=== PATIENT | female | born 1950 | race Caucasian/White ===

== ENCOUNTER 2016-09-28 00:16 | Emergency (ER) | payer MEDICARE ==
[~2016-09-28] VITALS: Ht 162.6 cm; Wt 89.5 kg
[~2016-09-28 00:16] MED LIST: BIOT300T2 PO; CHOL5000 PO; DHA PO; GLUC1500 PO; HYDR-4003 PO; LISI1TAB7 PO; OMEP20CA11 PO; ONDA8TAB10 PO; OXYC-407 PO; OXYC1TAB24 PO; [UNRECOGNIZED DRUG - OTHER] PO; [UNRECOGNIZED DRUG - OTHER] PO; fiber PO
[2016-09-28 00:18] VITALS: BP 145/79; PULSE 75; RESP 18; O2SAT 98
--- NOTE | 2016-09-28 00:33 | ED.REPORT ---
HPI-Abd Pain F 40 and Over Date of Service Sep 28, 2016 ED Provider: Dr. Rajiv Mijares M.D. A 66 year old female with a medical history including hypertension, GERD, diverticulitis, and IBS s/p several abdominal surgeries presents to the ED with worsening diarrhea onset four days ago. Associated symptoms include intermittent lower abdominal pain, nausea, and dry heaving. Her symptoms are dissimilar from previous diverticulitis flares. The patient denies hematochezia or fever. Nursing Notes Stated Complaint: STOMACH ISSUES Chief Complaint: Female Abdominal Pain Nursing Notes Reviewed: Yes Allergies: Coded Allergies: Sulfa (Sulfonamide Antibiotics) (Verified Allergy, Intermediate, rash, ) Scheduled ([fiber]) 1 TABLET PO BID ([Folic Acidw/ DHA]) 1 TABLET PO DAILY ([tropism Chloride]) 20 MG PO BID Lisinopril / HCTZ 10-12.5 mg (Lisinopril / HCTZ 10-12.5 mg) 1 Each Tablet 1 EACH PO DAILY Omeprazole (Omeprazole) 20 Mg Capsule.dr 20 MG PO DAILY Ondansetron ODT (Ondansetron ODT) 8 Mg Tab.rapdis 8 MG PO QID Scheduled PRN Hydrocodone-Acetaminophen 5-325 mg (Hydrocodone-Acetaminophen 5-325 mg) 1 Each Tablet 1-2 TABLET PO Q6H PRN PRN For Pain Ondansetron ODT (Ondansetron ODT) 8 Mg Tab.rapdis 8 MG PO qh4 PRN PRN For Nausea Oxycodone HCl/Acetaminophen 5-325 (Endocet 5-325) 1 Each Tablet 1-2 TABLET PO Q4H PRN PRN For Pain oxyCODONE-Acetaminophen 5-325 mg (oxyCODONE-Acetaminophen 5-325 mg) 1 Each Tablet 1-2 TAB PO TID PRN PRN For Pain Miscellaneous Medications Biotin (Biotin) 300 Mcg Tablet 500 MCG PO Cholecalciferol (Vitamin D3) (Vitamin D3) 5,000 Unit Capsule 5,000 UNIT PO Glucosamine HCl (Glucosamine HCl) 1,500 Mg Tablet 1,500 MG PO General Time Seen by MD: 00:33 Chief Complaint Diarrhea moderate Hx Obtained From: Patient Arrived By: Walk-in Sudden in Onset?: Yes Onset Occurred: 4 days ago Symptom Duration: Since onset Progression since Onset: Gradually worsening Location: : Abdomen lower Quality: Painful Severity: Current: Moderate Severity: Maximum: Moderate Associated with: Reports: Nausea, Vomiting, Denies: Fever, Hematochezia Pertinent Negative: Relieved by nothing Context Related History: Reports: Abdominal surgery, Diverticulosis, GERD, Inflam bowel disease Recent Healthcare: No recent doctor visit Similar Sx Previous: No Past Medical History Past Medical History Diverticulitis dx 06/21/15, admit 09/19/13 and 05/21 H/o kidney stones IBS History of overactive bladder Reports: GERD, Hypertension Past Surgical History Ventral Hernia repair Umbilical hernia repair Lap band surgery 2005 Cholecystectomy Tonsillectomy Hysterectomy Family History Reviewed, not relevant Smoking History Never Smoker Social History Alcohol Use: Denies alcohol use Drug Use: Denies drug use Other Social History: Good social support, , Local resident Ambulatory Status Independent Review of Systems Constitutional: Denies: Fever Respiratory: Denies: Non-productive cough, Shortness of breath GI: Reports: Abdominal pain (Intermittent, lower), Diarrhea, Nausea, Vomiting ( Dry-heaving), Denies: Hematochezia Complete sys rev & neg: except as marked. Physical Exam Vital Signs Vital Signs (First) Date Time Temp Pulse Resp B/P Pulse Ox O2 Delivery O2 Flow Rate FiO2 09/28/16 00:18 37.4 75 18 145/79 98 Room Air Initial VS: Reviewed Head / Eyes: Atraumatic, Normocephalic ENT: Conjunctiva normal, No scleral icterus Neck: Supple, Full range of motion Skin: Warm, Dry Neurologic: Alert, Oriented, Nonfocal Psychiatric: Mood/affect normal, Behavior normal, Normal thought content General/Constitutional: Awake, Alert Respiratory / Chest: Breath sounds NL, Breath sounds = bilat, No respiratory distress Cardiovascular: Heart rate NL, Regular rhythm, Heart sounds NL Abdomen: Soft Tenderness/Guarding/Rebound: Positive: Tender LLQ... (Mild), Tender LUQ... ( Mild) Interpretation & Diagnostics Lab Results Interpretation Result Diagram: 09/28/160 09/28/16 005 Test 09/28/16 00:50 09/28/16 04:00 White Blood Count 6.9th/mm3 (3.8-10.1) Red Blood Count 5.53mil/mm3 (3.90-5.20) Hemoglobin 15.6g/dL (12.0-15.6) Hematocrit 48.0% (35.0-46.0) Mean Corpuscular Volume 86.8fL (81-100) Mean Corpuscular Hemoglobin 28.2pg (27.0-35.0) Mean Corpuscular Hemoglobin Concent 32.5% (32.0-37.0) Red Cell Distribution Width 13.5% (12.3-15.4) Platelet Count 306bil/L (150-400) Neutrophils (%) (Auto) 77.4% (40-74) Lymphocytes (%) (Auto) 14.4% (14-46) Monocytes (%) (Auto) 6.0% (4-12) Eosinophils (%) (Auto) 1.6% (0-5) Basophils (%) (Auto) 0.3% (0-3) Hold Purple Top Tube Received (Received) Prothrombin Time 11.3sec (8.1-12.5) Prothromb Time International Ratio 1.05ratio Hold Blue Top Tube Received (Received) Sodium Level 136mEq/L (134-144) Potassium Level 3.5mEq/L (3.5-5.2) Chloride Level 97mEq/L (97-108) Carbon Dioxide Level 24mmol/L (18-29) Blood Urea Nitrogen 12mg/dL (8-27) Creatinine 0.63mg/dL (0.57-1.00) Estimat Glomerular Filtration Rate 135mL/min (>59) Glucose Level 94mg/dL (60-99) Calcium Level 9.7mg/dL (8.5-10.1) Magnesium Level 1.8mg/dL (1.6-2.6) Total Bilirubin 1.5mg/dL (0.0-1.2) Aspartate Amino Transf (AST/SGOT) 144U/L (0-50) Alanine Aminotransferase (ALT/SGPT) 246U/L (0-32) Alkaline Phosphatase 145U/L (25-165) Total Protein 7.6g/dL (6.4-8.4) Albumin 4.6g/dL (3.4-5.0) Lipase 20U/L (13-60) Hold Red Top Tube Received (Received) Hold Mcintosh Top Tube Received (Received) X-Ray Abdominal Interpretation ACUTE ABDOMINAL SERIES: Air-fluid levels Bowel obstruction vs ileus Interpretation / Wet Read by: Wet read ED physician CT Abd / Pelvis Interpretation CONCLUSION: Bilateral hydronephrosis without obvious obstructing cause identified in either kidney or ureter. Postoperative change of the bowel noted. Diverticulosis without diverticulitis. Transmitted to the ED at 09/28/2016 - 3:28:34 AM PST Study type: Abdominal CT IV contrast Interpretation / Wet Read by: Interpret - Radiologist Re-Eval/Medical Decision Med Decision/Clinical Course 66-year-old with somewhat complex history including a gastric sleeve, prior cholecystectomy, prior hysterectomy but no fracture me, presents with nausea vomiting and diarrhea. She appears to have a normal virus type infection clinically. Her only lab findings of no were not elevated bilirubin and AST and ALT. Hepatitis studies are pending. CT of the abdomen does not show any significant abnormalities. She was discharged home with nausea control by mouth fluid replacement and progressive diet. Follow-up with PCP. Prompt return if worse. Source of Hx: Old records Re-Evaluation/Progress : Time of Eval: 04:46 Patient Status: Condition improved Re-Evaluation/Progress Note: Patient feels better. Discussed with patient lab, x-ray, and CT results, diagnosis, and plan for discharge. Follow-up and return to the ER instructions given. Patient agrees with plan for care and all questions were addressed. Counseled Regarding: Diagnosis, Lab results, Need for follow-up, When/why to return to ED Discharge & Departure Shift Change Sign-Out Response to Therapy: Improved Primary Impression: Diarrhea Additional Impressions: Acute gastroenteritis Vomiting Vomiting type: unspecified Vomiting Intractability: non-intractable Nausea presence: with nausea Qualified Code: R11.2 - Nausea with vomiting, unspecified Disposition: Home Discharge Condition All VS Reviewed: Yes Condition: Improved Patient Instructions: Acute Diarrhea (ED), Acute Nausea and Vomiting (ED), Gastroenteritis (ED) Additional Instructions: Zofran four times daily if needed for nausea. We do not recommend antidiarrheals, as they merely prolong contact of the colon with potentially toxic material. However, you must replace fluid losses volume for volume. Drink small frequent doses of electrolyte replacement fluid, such as Pedialyte or Gatorade or Powerade. Follow-up with your doctor in the office. Return if worsening, if you develop high fever, or if you begin to have blood in your stool. Follow-up also with your doctor in the office. This is probably norovirus, and is quite contagious. Pay very careful attention to hand washing when in contact with other family members. Referrals: Ariel Rodney MD (PCP) Scribe Attestation Portions of this note were transcribed by Diana Beck. I, Dr. Mijares, personally performed the history, physical exam, and medical decision-making; I reviewed and confirmed the accuracy of the information in the transcribed note. Signed by: Bea Knight, 09/28/2016, 05:10 copies to: Ariel Rodney MD, Christopher W MD Sep 28, 2016 00:33 DIANA BECK Sep 28, 2016 01:07
[2016-09-28] MEDS ORDERED: 0.9% Sodium Chloride 1,000 ML IV ONE ×2 (01:03→01:05)
[2016-09-28] MEDS ORDERED: Ondansetron 2 mg/mL 2 mL Inj IVPUSH ONE (01:05)
[2016-09-28] MEDS ORDERED: Pantoprazole 4 mg/mL 10 mL Inj IVPUSH ONE (01:05)
[2016-09-28 01:20] LABS: BASOPHILS % (AUTO) 0.3 % (0-3); EOSINOPHILS % (AUTO) 1.6 % (0-5); Mean Corpuscular Hemoglobin 28.2 pg (27.0-35.0); Mean Corpuscular Volume 86.8 fL (81-100); NEUTROPHILS % (AUTO) 77.4 % (40-74); Platelet Count 306 bil/L (150-400)
[2016-09-28 01:26] LABS: INR 1.05 ratio
[2016-09-28 01:31] LABS: Magnesium 1.8 mg/dL (1.6-2.6)
[2016-09-28] MEDS: HYDROmorphone 1 mg/mL Inj IVPUSH PRN ×2 (03:28→04:40)
[2016-09-28] MEDS ORDERED: ONDA8TAB10 PO (04:53)
[2016-09-28] MEDS ORDERED: Ondansetron 8 mg ODT Tablet PO ONE (05:00)
[2016-09-28 05:11] VITALS: BP 122/76; PULSE 88; RESP 18; O2SAT 98
--- NOTE | 2016-09-28 08:41 | DRSVH ---
PROCEDURE: CT ABDOMEN AND PELVIS WITH CONTRAST ([id number]) INDICATIONS: 66 year-old woman with left lower quadrant abdominal pain, elevated bilirubin and trans aminase. TECHNIQUE: After the administration of intravenous contrast, 5 mm thick sections acquired from the diaphragm to the symphysis. 5 mm coronal and sagittal reformats were acquired. For radiation dose reduction, the following was used: automated exposure control, adjustment of mA and/or kV according to patient siz e. COMPARISON: [facility], CT, ABD/PELVIS W/CON (PNL), 05/20/2013, 21:56. [facility], CT, ABD/PELVIS W/CON (PNL), 09/19/2013, 21:37. [facility], CT, CT ABD PELVIS W CO N, 06/20/2015, 16:32. [facility], CT, CT ABD PELVIS W CON, 05/29/2016, 19:05. FINDINGS: Image quality: Excellent. ABDOMEN: Lung bases: Lung bases are clear. Heart size is normal. Solid organs: Liver and spleen are normal in size and enhancement. Gallbladder is surgically absent . Biliary system is non dilated. Pancreas enhances normally. No adrenal nodules. Kidneys demonstr ate normal size and enhancement. Bilateral mild pelviectasis, unchanged from 05/29/2016. No renal ca lculi. Small renal cysts are present bilaterally. Peritoneum and bowel: There is gastric banding. Bowel loops demonstrate normal wall thickness and ca liber. There is numerous colonic diverticula. No evidence for active diverticulitis. Normal appendix . No free fluid or air. Nodes and vessels: No retroperitoneal or mesenteric adenopathy by size criteria. Aorta and inferior vena cava are normal in size. Miscellaneous: No ventral hernias. PELVIS: Genitourinary: Bladder wall thickness is normal. Miscellaneous: No inguinal hernias or adenopathy. Bones: No suspicious bony lesions. No vertebral body compression fractures. Degenerative changes roverto mbar spine. IMPRESSION: 1. Chronic mild bilateral renal pelviectasis. There is no hydroureter. No obstructive stones identifi ed. 2. Diverticulosis. No active diverticulitis. 3. Normal appendix. 4. Cholecystectomy. No significant discrepancy with the cook night radiology preliminary report. Dictated by: Gabino Buchanan M.D. on 09/28/2016 at 8:28 Approved by: Gabino Buchanan M.D. on 09/28/2016 at 8:39
--- NOTE | 2016-09-28 10:07 | DRSVH ---
PROCEDURE: X-RAY ACUTE ABDOMINAL SERIES ([id number]) INDICATIONS: abdo pain vomiting, post lap band TECHNIQUE: One view chest and two views of the abdomen were acquired. COMPARISON: [facility], CR, XR ABD ACUTE SERIES 3VW, 06/20/2015, 15:34. FINDINGS: Surgical changes and devices: Gastric lap band present. Chest: Lungs are clear. Heart size is normal. No pleural effusions. No pneumoperitoneum. Abdomen: Bowel gas pattern is nonspecific. There are multiple short air-fluid levels seen throughout the bowel in the abdomen and pelvis, otherwise the bowel gas pattern is normal. No pneumatosis or b owel wall thickening. No pneumoperitoneum. Bones: No suspicious bony lesions. IMPRESSION: 1. Nonspecific bowel gas pattern. If patient's symptoms persist, recommend repeat imaging or CT. Dictated by: Tutu Manuel [facility] Interpreted: Mariposa Negro MD on 09/28/2016 at 10:05 Transcribed by: MARILEE on 09/28/2016 at 10:06 Approved by: Mariposa Negro M.D. on 09/28/2016 at 16:28
[2016-09-29 01:07] LABS: Hepatitis A Antibody IgM Negative (Negative); Hepatitis B Core Antibody IgM Negative (Negative)
== END 2016-09-28 05:13 | disposition home or self-care (01) ==
LOC: SED 00:16
DX: K52.9 Noninfective gastroenteritis and colitis, unspecified (principal); K21.9 Gastro-esophageal reflux disease without esophagitis; I10 Essential (primary) hypertension; Z90.49 Acquired absence of other specified parts of digestive tract; Z90.710 Acquired absence of both cervix and uterus; Z88.2 Allergy status to sulfonamides
CPT/HCPCS: 36415; 74022; 74177; 80053; 83690; 83735; 85025; 85610; 86705; 86709; 87340; 87341; 96361; 96374; 96375; 96376; 99285; G0472; J1170; J2405; J7030; Q9967

== ENCOUNTER 2017-02-22 16:28 | Emergency (ER) | payer MEDICARE ==
[~2017-02-22] VITALS: Ht 160 cm; Wt 93.2 kg
[2017-02-22 16:30] VITALS: BP 137/67; PULSE 69; RESP 20; O2SAT 100
[2017-02-22 17:32] LABS: BASOPHILS % (AUTO) 0.4 % (0-3); EOSINOPHILS % (AUTO) 1.7 % (0-5); MONOCYTES % (AUTO) 5.9 % (4-12); Mean Corpuscular Hemoglobin 28.9 pg (27.0-35.0); Mean Corpuscular Volume 88.7 fL (81-100); NEUTROPHILS % (AUTO) 65.7 % (40-74); Platelet Count 333 bil/L (150-400)
[2017-02-22 17:52] LABS: Magnesium 1.9 mg/dL (1.6-2.6)
[2017-02-22] MEDS ORDERED: PROP60CA2 PO (20:00)
[2017-02-22] MEDS ORDERED: SERT50TA9 PO (20:00)
[2017-02-22] MEDS ORDERED: CYCL10TA9 PO (20:00)
[2017-02-22] MEDS ORDERED: SULI200T79 PO (20:00)
[2017-02-22 20:36] VITALS: BP 118/74; PULSE 63; RESP 18; O2SAT 97
[2017-02-22 20:57] LABS: APPEARANCE,URINE CLEAR (CLEAR,HAZY); COLOR,URINE YELLOW (YELLOW); OCCULT BLOOD,URINE TRACE (NEGATIVE); UROBILINOGEN,URINE NORMAL (NORMAL)
--- NOTE | 2017-02-22 21:28 | ED.REPORT ---
HPI-Abd Pain F 40 and Over Date of Service Feb 22, 2017 ED Provider: Pro Vogt MD Pt is a 66 year old female with a hx of diverticulitis, IBS, and HTN presenting to the ED complaining of diarrhea and left abdominal pain onset a week and a half ago, now radiating across the lower abdomen. Associated symptoms include nausea and constipation. Denies fever, chills, or any other symptoms at this time. She reports that she is usually able to take Imodium to resolve her symptoms, but that this time Imodium did not help. Nursing Notes Stated Complaint: PAIN IN LOWER STOMACH Chief Complaint: Female Abdominal Pain Nursing Notes Reviewed: Yes Allergies: Coded Allergies: Sulfa (Sulfonamide Antibiotics) (Verified Allergy, Intermediate, rash, ) Scheduled ([fiber]) 1 TABLET PO BID ([Folic Acidw/ DHA]) 1 TABLET PO DAILY Cholecalciferol (Vitamin D3) (Vitamin D3) 5,000 Unit Capsule 5,000 UNIT PO DAILY Glucosamine HCl (Glucosamine HCl) 1,500 Mg Tablet 1,500 MG PO DAILY Lisinopril / HCTZ 10-12.5 mg (Lisinopril / HCTZ 10-12.5 mg) 1 Each Tablet 1 EACH PO DAILY Omeprazole (Omeprazole) 20 Mg Capsule.dr 20 MG PO DAILY Propranolol ER (Propranolol ER) 60 Mg Cap.sa.24h 60 MG PO DAILY Sertraline HCl (Sertraline) 50 Mg Tablet 50 MG PO DAILY Sulindac (Sulindac) 200 Mg Tablet 200 MG PO DAILY Scheduled PRN Cyclobenzaprine (Cyclobenzaprine) 10 Mg Tablet 10 MG PO DAILY PRN PRN SPASMS Miscellaneous Medications Biotin (Biotin) 300 Mcg Tablet 500 MCG PO General Time Seen by MD: 21:20 Chief Complaint Abdominal pain, Diarrhea moderate Hx Obtained From: Patient Arrived By: Walk-in Sudden in Onset?: No Onset Occurred: 1 week ago (A week and a half) Symptom Duration: Since onset Location: : Abdomen lower Quality: Painful Severity: Current: Mild Severity: Maximum: Moderate Associated with: Reports: Constipation, Diarrhea, Nausea, Denies: Fever Recent Healthcare: No recent doctor visit, No recent hospitalization Similar Sx Previous: Yes Past Medical History Past Medical History Diverticulitis dx 06/21/15, admit 09/19/13 and 05/21 H/o kidney stones IBS History of overactive bladder Reports: GERD, Hypertension Past Surgical History Ventral Hernia repair Umbilical hernia repair Lap band surgery 2005 Cholecystectomy Tonsillectomy Hysterectomy Family History Reviewed, not relevant Smoking History Never Smoker Social History Alcohol Use: Denies alcohol use Drug Use: Denies drug use Other Social History: Good social support, , Local resident Ambulatory Status Independent Review of Systems Constitutional: Denies: Chills, Fever GI: Reports: Abdominal pain, Constipation, Diarrhea, Nausea Complete sys rev & neg: except as marked. Physical Exam Vital Signs Vital Signs (First) Date Time Temp Pulse Resp B/P Pulse Ox O2 Delivery O2 Flow Rate FiO2 02/22/17 16:30 37.1 69 20 137/67 100 Room Air Initial VS: Reviewed, Vital signs normal Head / Eyes: Atraumatic, Normocephalic, PERRL ENT: Mucous membranes moist, Conjunctiva normal, No scleral icterus Extremities: Vascular intact, Neuro intact, No swelling, No tenderness Skin: Warm, Dry, No cyanosis Neurologic: Alert, Oriented, Nonfocal Psychiatric: Mood/affect normal, Behavior normal, Normal thought content General/Constitutional: Awake, Alert, No acute distress, Well appearing, Well developed, Well hydrated Respiratory / Chest: Breath sounds NL, Breath sounds = bilat, No respiratory distress, No rales, No rhonchi, No wheezing, No stridor Cardiovascular: Heart rate NL, Regular rhythm, Heart sounds NL, Peripheral circulation NL Abdomen: Atraumatic, Soft, No guarding, No rebound Tenderness/Guarding/Rebound: Positive: Tender LLQ... (Mild) Interpretation & Diagnostics Lab Results Interpretation Result Diagram: 02/22/17 1722 02/22/17 1722 Test 02/22/17 17:22 02/22/17 20:19 02/22/17 20:40 White Blood Count 8.2th/mm3 (3.8-10.1) Red Blood Count 4.71mil/mm3 (3.90-5.20) Hemoglobin 13.6g/dL (12.0-15.6) Hematocrit 41.8% (35.0-46.0) Mean Corpuscular Volume 88.7fL (81-100) Mean Corpuscular Hemoglobin 28.9pg (27.0-35.0) Mean Corpuscular Hemoglobin Concent 32.5% (32.0-37.0) Red Cell Distribution Width 13.5% (12.3-15.4) Platelet Count 333bil/L (150-400) Neutrophils (%) (Auto) 65.7% (40-74) Lymphocytes (%) (Auto) 26.1% (14-46) Monocytes (%) (Auto) 5.9% (4-12) Eosinophils (%) (Auto) 1.7% (0-5) Basophils (%) (Auto) 0.4% (0-3) Sodium Level 140mEq/L (134-144) Potassium Level 4.6mEq/L (3.5-5.2) Chloride Level 103mEq/L (97-108) Carbon Dioxide Level 25mmol/L (18-29) Blood Urea Nitrogen 17mg/dL (8-27) Creatinine 0.75mg/dL (0.57-1.00) Estimat Glomerular Filtration Rate 110mL/min (>59) Glucose Level 95mg/dL (60-99) Calcium Level 9.8mg/dL (8.5-10.1) Magnesium Level 1.9mg/dL (1.6-2.6) Total Bilirubin 0.9mg/dL (0.0-1.2) Aspartate Amino Transf (AST/SGOT) 17U/L (0-50) Alanine Aminotransferase (ALT/SGPT) 19U/L (0-32) Alkaline Phosphatase 77U/L (25-165) Total Protein 7.0g/dL (6.4-8.4) Albumin 4.1g/dL (3.4-5.0) Lipase 25U/L (13-60) Hold Rios Top Tube Received (Received) Hold Urine Received (Received) Urine Color Yellow (YELLOW) Urine Appearance Clear (CLEAR,HAZY) Urine pH 5.0 (5.0-8.0) Urine Specific [place] 1.025 (1.003-1.035) Urine Protein Negativemg/dL (NEG,TRACE) Urine Glucose (UA) Negativemg/dL (NEGATIVE) Urine Ketones Negativemg/dL (NEGATIVE) Urine Occult Blood Trace (NEGATIVE) Urine Nitrite Negative (NEGATIVE) Urine Bilirubin Negative (NEGATIVE) Urine Urobilinogen Normalmg/dL (NORMAL) Urine Leukocyte Esterase Negative (NEGATIVE) Urine RBC 0-2/hpf (0-2) Urine WBC 0-5/hpf (0-5) Urine Epithelial Cells Few/hpf (NONE-MOD) Urine Crystals None seen (NONE SEEN) Urine Bacteria Few/hpf (NONE-FEW) Urine Hyaline Casts None/lpf (NONE) Urine Granular Casts None seen (NONE SEEN) Urine Waxy Casts None seen (NONE SEEN) Urine Red Blood Cell Casts None seen (NONE SEEN) Urine White Blood Cell Casts None seen (NONE SEEN) Urine Mucus Present (None Seen) Urine Trichomonas None seen (NONE SEEN) Urine Yeast None (NONE SEEN) Urinalysis Comment None Urine Culture Reflexed Not indicated Lab values outside NL range: no clinical significance. Re-Eval/Medical Decision Med Decision/Clinical Course Patient with a history of diverticulitis presents with similar symptoms. We discussed the value of CT scan in this situation. She would prefer to have him. Treatment and reevaluation. Re-Evaluation/Progress : Time of Eval: 21:42 Patient Status: Condition improved Re-Evaluation/Progress Note: Discussed plan for discharge. Pt understands and agrees. Counseled Regarding: Diagnosis, Lab results, Need for follow-up, When/why to return to ED Discharge & Departure Primary Impression: Acute diverticulitis Disposition: Home Discharge Condition All VS Reviewed: Yes Condition: Improved Patient Instructions: Diverticulitis (ED) Additional Instructions: As we discussed, this sounds like diverticulitis. We have not done the CT scan to prove that, but we will treat you empirically with antibiotics and nausea medicine. You can also take [id number] diarrhea medication like Imodium. If you do not improve in the next couple of days, he will need to be reevaluated and possibly get a CT scan at that time. Ondansetron 4-8 mg or 4 times daily as needed for nausea and vomiting, #4 prepack dispensed #20 prescription written. Amoxicillin clavulanate (Augmentin) 875, one pill twice daily for 10 days, #20 dispensed. Metronidazole (Flagyl) 500 mg by mouth 3 times a day for a week, #20 dispensed. Referrals: Ariel Rodney MD (PCP) Scribe Attestation Portions of this note were transcribed by Soo Maria. I, Dr. Vogt personally performed the history, physical exam and medical decision-making; I reviewed and confirmed the accuracy of the information in the transcribed note. Signed by: Bea Ferrara, 02/22/2017 at 2141. copies to: Ariel Rodney MD, Pro Rodgers MD Feb 22, 2017 21:28 SOO MARIA Feb 22, 2017 21:35
[2017-02-22] MEDS ORDERED: _Ondansetron ODT 4 mg Tablet PO PRN (21:35)
[2017-02-22] MEDS ORDERED: Ondansetron 8 mg ODT Tablet PO ONE (21:35)
[2017-02-22 22:01] VITALS: BP 129/74; PULSE 64; RESP 18; O2SAT 100
[2017-02-23] MEDS ORDERED: _Amoxicillin-Clavulanate 875-125 mg Tablet PO SCH (08:30)
[2017-02-23] MEDS ORDERED: _metroNIDAZOLE 500 mg Tablet PO SCH (08:30)
== END 2017-02-22 22:01 | disposition home or self-care (01) ==
LOC: SED 16:28
DX: K57.92 Diverticulitis of intestine, part unspecified, without perforation or abscess without bleeding (principal); I10 Essential (primary) hypertension; K21.9 Gastro-esophageal reflux disease without esophagitis; Z88.2 Allergy status to sulfonamides; Z87.442 Personal history of urinary calculi

== ENCOUNTER 2017-04-27 05:48 | Emergency (ER) | payer MEDICARE ==
[~2017-04-27] VITALS: Ht 160 cm; Wt 89.5 kg
[~2017-04-27 05:48] MED LIST changes: +CYCL10TA9 PO; -HYDR-4003 PO; -ONDA8TAB10 PO; -OXYC-407 PO; -OXYC1TAB24 PO; +PROP60CA2 PO; +SERT50TA9 PO; +SULI200T79 PO; -[UNRECOGNIZED DRUG - OTHER] PO
[2017-04-27 05:59] VITALS: BP 138/87; PULSE 86; RESP 18; O2SAT 98
[2017-04-27 06:52] LABS: BASOPHILS % (AUTO) 0.3 % (0-3); EOSINOPHILS % (AUTO) 0.9 % (0-5); MONOCYTES % (AUTO) 4.7 % (4-12); Mean Corpuscular Hemoglobin 29.3 pg (27.0-35.0); Mean Corpuscular Volume 87.4 fL (81-100); NEUTROPHILS % (AUTO) 81.2 % (40-74); Platelet Count 311 bil/L (150-400)
--- NOTE | 2017-04-27 06:58 | ED.REPORT ---
HPI-Abd Pain F 40 and Over Date of Service Apr 27, 2017 ED Provider: Shawn Mullins MD Patient is a 66 year old female with a hx of diverticulitis, GERD, and hiatal hernia who presents ot the ED complaining of diffuse lower abdominal pain that radiates to her back bilaterally onset yesterday. She describes the pain as aching and pressure, a 7/10 in severity at its worst but 3/10 currently, and worse with walking/movement. Associated symptom include dysuria, hematuria, urinary frequency, nausea, fever and lightheadedness. She denies urinary retention, constipation, diarrhea, vomiting, or any other symptoms. Pt has no known sick contacts. Nursing Notes Stated Complaint: POSS UTI Chief Complaint: Female Abdominal Pain Nursing Notes Reviewed: Yes Allergies: Coded Allergies: Sulfa (Sulfonamide Antibiotics) (Verified Allergy, Intermediate, rash, ) Scheduled ([fiber]) 1 TABLET PO BID ([Folic Acidw/ DHA]) 1 TABLET PO DAILY Cholecalciferol (Vitamin D3) (Vitamin D3) 5,000 Unit Capsule 5,000 UNIT PO DAILY Ciprofloxacin (Cipro) 500 Mg Tablet 500 MG PO BID Glucosamine HCl (Glucosamine HCl) 1,500 Mg Tablet 1,500 MG PO DAILY Lisinopril / HCTZ 10-12.5 mg (Lisinopril / HCTZ 10-12.5 mg) 1 Each Tablet 1 EACH PO DAILY Metronidazole (Flagyl) 500 Mg Tablet 500 MG PO Q8H Omeprazole (Omeprazole) 20 Mg Capsule.dr 20 MG PO DAILY Propranolol ER (Propranolol ER) 60 Mg Cap.sa.24h 60 MG PO DAILY Sertraline HCl (Sertraline) 50 Mg Tablet 50 MG PO DAILY Sulindac (Sulindac) 200 Mg Tablet 200 MG PO DAILY Scheduled PRN Cyclobenzaprine (Cyclobenzaprine) 10 Mg Tablet 10 MG PO DAILY PRN PRN SPASMS Miscellaneous Medications Biotin (Biotin) 300 Mcg Tablet 500 MCG PO General Time Seen by MD: 06:05 Chief Complaint Abdominal pain Hx Obtained From: Patient Arrived By: Walk-in Sudden in Onset?: Yes Onset Occurred: Yesterday Symptom Duration: Since onset Location: : Abdomen lower: Diffuse Quality: Aching, Pressure Radiation: : Back Severity: Current: Pain level 3 out of 10 Severity: Maximum: Pain level 7 out of 10 Associated with: Reports: Dysuria, Fever, Hematuria, Nausea, Urinary frequency Additional Notes: lightheadedness Pertinent Negative: Pt denies other symptoms Exacerbated by: Movement, Walking Pertinent Negative: Relieved by nothing Context Related History: Reports: Abdominal surgery ([facility]herrie ), Bariatric surgery Recent Healthcare: Recent doctor visit Risk Factors )( AAA Risk Stratification HypertensionNo Smoking Risk factors reviewed Past Medical History Past Medical History Diverticulitis dx 06/21/15, admit 09/19/13 and 05/21 H/o kidney stones IBS History of overactive bladder TMJ disease hiatal hernia Reports: GERD, Hypertension Past Surgical History Ventral Hernia repair Umbilical hernia repair Lap band surgery 2005 Cholecystectomy Tonsillectomy Hysterectomy Vaginal sling Family History Reviewed, not relevant Smoking History Never Smoker Social History Alcohol Use: "Social" Drug Use: Denies drug use Other Social History: Good social support, , Local resident Ambulatory Status Independent Review of Systems Constitutional: Reports: Fever GI: Reports: Abdominal pain, Nausea, Denies: Constipation, Diarrhea, Vomiting Female: Reports: Dysuria, Hematuria, Urinary frequency, Denies: Urination decreased Musculoskeletal: Reports: Back pain Complete sys rev & neg: except as marked. Neurologic: Reports: Lightheaded Physical Exam Vital Signs Vital Signs (First) Date Time Temp Pulse Resp B/P Pulse Ox O2 Delivery O2 Flow Rate FiO2 04/27/17 05:59 38.0 86 18 138/87 98 Room Air Initial VS: Reviewed, Vital signs abnormal Head / Eyes: Atraumatic, Normocephalic Neck: Full range of motion Skin: Warm, Dry Neurologic: Alert, Oriented, Nonfocal Psychiatric: Mood/affect normal, Behavior normal, Normal thought content General/Constitutional: Awake, Alert, No acute distress Respiratory / Chest: Atraumatic, Breath sounds NL, Breath sounds = bilat, No respiratory distress Cardiovascular: Heart rate NL, Regular rhythm, Heart sounds NL Abdomen: Atraumatic, Soft, BS normoactive Tenderin the LLQ with guarding No referred tenderness Back: Atraumatic Mild CVA tenderness L>R Interpretation & Diagnostics Lab Results Interpretation Result Diagram: 04/27/17 0625 04/27/17 0625 Test 04/27/17 06:25 04/27/17 06:48 White Blood Count 11.7th/mm3 (3.8-10.1) Red Blood Count 4.78mil/mm3 (3.90-5.20) Hemoglobin 14.0g/dL (12.0-15.6) Hematocrit 41.8% (35.0-46.0) Mean Corpuscular Volume 87.4fL (81-100) Mean Corpuscular Hemoglobin 29.3pg (27.0-35.0) Mean Corpuscular Hemoglobin Concent 33.5% (32.0-37.0) Red Cell Distribution Width 13.2% (12.3-15.4) Platelet Count 311bil/L (150-400) Neutrophils (%) (Auto) 81.2% (40-74) Lymphocytes (%) (Auto) 12.7% (14-46) Monocytes (%) (Auto) 4.7% (4-12) Eosinophils (%) (Auto) 0.9% (0-5) Basophils (%) (Auto) 0.3% (0-3) Sodium Level 140mEq/L (134-144) Potassium Level 3.7mEq/L (3.5-5.2) Chloride Level 102mEq/L (97-108) Carbon Dioxide Level 21mmol/L (18-29) Blood Urea Nitrogen 18mg/dL (8-27) Creatinine 0.87mg/dL (0.57-1.00) Estimat Glomerular Filtration Rate 93mL/min (>59) Glucose Level 142mg/dL (60-99) Calcium Level 9.6mg/dL (8.5-10.1) Magnesium Level 1.8mg/dL (1.6-2.6) Total Bilirubin 0.8mg/dL (0.0-1.2) Aspartate Amino Transf (AST/SGOT) 21U/L (0-50) Alanine Aminotransferase (ALT/SGPT) 23U/L (0-32) Alkaline Phosphatase 84U/L (25-165) Total Protein 7.2g/dL (6.4-8.4) Albumin 4.3g/dL (3.4-5.0) Lipase 24U/L (13-60) Urine Color Bloody (YELLOW) Urine Appearance Turbid (CLEAR,HAZY) Urine pH 6.0 (5.0-8.0) Urine Specific [place] 1.025 (1.003-1.035) Urine Protein 300mg/dL (NEG,TRACE) Urine Glucose (UA) Negativemg/dL (NEGATIVE) Urine Ketones Negativemg/dL (NEGATIVE) Urine Occult Blood Large (NEGATIVE) Urine Nitrite Negative (NEGATIVE) Urine Bilirubin Negative (NEGATIVE) Urine Urobilinogen Normalmg/dL (NORMAL) Urine Leukocyte Esterase Small (NEGATIVE) Urine RBC Packed/hpf (0-2) Urine WBC 6-10/hpf (0-5) Urine Epithelial Cells Occasional/hpf (NONE-MOD) Urine Crystals None seen (NONE SEEN) Urine Bacteria Few/hpf (NONE-FEW) Urine Hyaline Casts None/lpf (NONE) Urine Granular Casts None seen (NONE SEEN) Urine Waxy Casts None seen (NONE SEEN) Urine Red Blood Cell Casts None seen (NONE SEEN) Urine White Blood Cell Casts None seen (NONE SEEN) Urine Mucus None seen (None Seen) Urine Trichomonas None seen (NONE SEEN) Urine Yeast None (NONE SEEN) Urinalysis Comment None Urine Culture Reflexed Indicated CT Abd / Pelvis Interpretation IMPRESSION: 1. Bilateral mild hydronephrosis is again noted, presumably from background bilateral ureteropelvic junction structures given that both ureters are nondistended. 2. Descending and sigmoid colon diverticulosis, without acute diverticulitis. 3. Small fat containing right inguinal hernia. Dictated by: Raul Beckford M.D. on 04/27/2017 at 9:02 Approved by: Raul Beckford M.D. on 04/27/2017 at 9:15 Study type: Abdominal CT IV contrast Interpretation / Wet Read by: Interpret - Radiologist Re-Eval/Medical Decision Med Decision/Clinical Course Patient is comfortable appearing and does have some significant lower abdominal tenderness to palpation. CT and laboratory data is relatively reassuring. She does have gross hematuria. I believe that the most likely expiration for the symptoms is diverticulitis though the CT scan does not show this definitively. I think is safe course of action is empiric therapy and close outpatient follow- up which has been recommended. Re-Evaluation/Progress : Time of Eval: 10:33 )( Re-Eval Abdomen: Soft Re-Evaluation/Progress Note: Rechecked pt. Discussed CT and lab results and need for f/u. Discussed need for abx and treatment as if early diverticulitis. Patient understands and agrees with plan. All questions addressed at this time. Counseled Regarding: Diagnosis, Lab results, Need for follow-up, When/why to return to ED Discharge & Departure Primary Impression: Acute diverticulitis Additional Impressions: UTI (urinary tract infection) Urinary tract infection type: site unspecified Hematuria presence: with hematuria Qualified Code: N39.0 - Urinary tract infection, site not specified Abdominal pain Abdominal location: unspecified location Qualified Code: R10.9 - Unspecified abdominal pain Disposition: Home Discharge Condition All VS Reviewed: Yes Condition: Stable Additional Instructions: Thank you for entrusting us with your care. You have what is called diverticulosis. We are going to treat your abdominal pain today empirically for early diverticulitis with two antibiotics for 10 days. Please take the Metronidazole and Ciprofloxacin as prescribed. Take the metronidazole three times a day. Take the Ciprofloxacin two times a day. Take tylenol as needed for pain. Your urinary symptoms and urine analysis today indicates a possible urinary tract infection. We are awaiting urine culture. However, the ciprofloxacin prescribed will also treat and cover the bacteria that normally causes a UTI. On CT scan today, your kidneys showed some signs of hydronephrosis, which is an abnormal dilation of the kidneys. Please plan for an outpatient follow up withyour doctor to discuss the possible need for a community organization director or urologist. Call your primary care provider today to schedule an appointment for this or Wednesday for follow up of your abdominal pain. Return to the emergency department if your pain worsens, vomiting, fever or any other new or concerning symptoms. Referrals: Nam Sung DO (PCP) Bea Attestation Portions of this note were transcribed by Landry Johansen. I, Dr. Mullins personally performed the history, physical exam and medical decision-making; I reviewed and confirmed the accuracy of the information in the transcribed note. Signed by: Bea Santoyo, 04/27/17 copies to: Nam Sung Kirk H MD Apr 27, 2017 06:57 LANDRY JOHANSEN Apr 27, 2017 07:04
[2017-04-27 07:00] LABS: Magnesium 1.8 mg/dL (1.6-2.6)
[2017-04-27 08:07] LABS: APPEARANCE,URINE TURBID (CLEAR,HAZY); COLOR,URINE BLOODY (YELLOW)
[2017-04-27 08:08] LABS: OCCULT BLOOD,URINE LARGE (NEGATIVE); UROBILINOGEN,URINE NORMAL (NORMAL)
--- NOTE | 2017-04-27 09:16 | DRSVH ---
PROCEDURE: CT ABDOMEN AND PELVIS WITH CONTRAST ([id number]) INDICATIONS: 66 year-old female with left lower quadrant abdominal pain, hematuria, and fevers. TECHNIQUE: After the administration of intravenous contrast, 5 mm thick sections acquired from the diaphragm to the symphysis. 5 mm coronal and sagittal reformats were acquired. For radiation dose reduction, the following was used: automated exposure control, adjustment of mA and/or kV according to patient siz e. COMPARISON: [facility], CT, CT ABD PELVIS W CON, 09/28/2016, 3:09. [facility], CT, CT ABD PELVIS W CON, 05/29/2016, 19:05. [facility], CT, CT ABD PELVIS W CON, 06/09, 16:32. FINDINGS: Image quality: Excellent. ABDOMEN: Lung bases: Lung bases are clear. Heart size is normal. Solid organs: Liver and spleen are normal in size and enhancement, with focal fatty infiltration adj acent to the falciform ligament. Gallbladder is surgically absent. Biliary system is non dilated. Pancreas enhances normally. No adrenal nodules. Kidneys demonstrate normal size and enhancement, wi th mild bilateral hydronephrosis unchanged. Ureters appear nondistended throughout their courses. Peritoneum and bowel: Bowel loops demonstrate normal wall thickness and caliber, status post remote gastric banding surgery. There is descending and sigmoid colon diverticulosis. The appendix is srinivas l in size. No free fluid or air. Nodes and vessels: No retroperitoneal or mesenteric adenopathy by size criteria. Aorta and inferior vena cava are normal in size. Miscellaneous: No ventral hernias. PELVIS: Genitourinary: Bladder is nondistended at the time of scan. The uterus is surgically absent. Postme nopausal ovaries appear normal in size. Miscellaneous: There is small fat containing right inguinal hernia. No inguinal adenopathy by CT size criteria. Bones: No suspicious bony lesions. No vertebral body compression fractures. There is multilevel roverto mbar spine disc degeneration. IMPRESSION: 1. Bilateral mild hydronephrosis is again noted, presumably from background bilateral ureteropelvic j unction structures given that both ureters are nondistended. 2. Descending and sigmoid colon diverticulosis, without acute diverticulitis. 3. Small fat containing right inguinal hernia. Dictated by: Raul Beckford M.D. on 04/27/2017 at 9:02 Approved by: Raul Beckford M.D. on 04/27/2017 at 9:15
[2017-04-27 09:34] VITALS: BP 107/48; PULSE 61; RESP 16; O2SAT 97
[2017-04-27] MEDS ORDERED: CIPR-231 PO (10:59)
[2017-04-27] MEDS ORDERED: METR500T PO (10:59)
== END 2017-04-27 11:22 | disposition home or self-care (01) ==
LOC: SED 05:48
DX: K57.92 Diverticulitis of intestine, part unspecified, without perforation or abscess without bleeding (principal); N39.0 Urinary tract infection, site not specified; B96.20 Unspecified Escherichia coli [E. coli] as the cause of diseases classified elsewhere; I10 Essential (primary) hypertension; K21.9 Gastro-esophageal reflux disease without esophagitis; Z87.442 Personal history of urinary calculi; Z90.710 Acquired absence of both cervix and uterus; Z90.49 Acquired absence of other specified parts of digestive tract; Z88.2 Allergy status to sulfonamides
CPT/HCPCS: 36415; 74177; 80053; 81000; 83690; 83735; 85025; 87086; 87088; 87186; 99284; Q9967